=== PATIENT | female | born 1970 | race Caucasian/White ===

== ENCOUNTER 2016-12-10 11:21 | Emergency (ER) | payer MEDICAID ==
[2016-12-10 12:52] LABS: UA SPECIFIC GRAVITY <=1.005 (1.005-1.035); microscopic required? YES; urine erythrocyte 2+ (NEGATIVE)
[2016-12-10 12:56] VITALS: BP 130/65
== END 2016-12-10 12:57 | disposition home or self-care (01) ==
LOC: ED 11:21
PROVIDERS: Emergency Medicine
DX: N39.0 Urinary tract infection, site not specified (principal)

== ENCOUNTER 2017-04-01 11:31 | Emergency (ER) | payer MEDICAID ==
[~2017-04-01] VITALS: Ht 157.5 cm; Wt 67.1 kg
[2017-04-01 11:33] VITALS: BP 126/75
== END 2017-04-01 13:04 | disposition home or self-care (01) ==
LOC: ED 11:31
DX: R31.9 Hematuria, unspecified (principal); R35.0 Frequency of micturition; R30.9 Painful micturition, unspecified; I10 Essential (primary) hypertension

== ENCOUNTER 2018-03-23 16:00 | Emergency (ER) | payer MEDICAID ==
[~2018-03-23] VITALS: Ht 157.5 cm; Wt 68.0 kg
[2018-03-23 16:16] VITALS: Ht 157.5 cm; Wt 68.0 kg
[2018-03-23 20:19] VITALS: BP 142/92
== END 2018-03-23 20:19 | disposition home or self-care (01) ==
LOC: ED 16:00
DX: M79.671 Pain in right foot (principal); R30.0 Dysuria; I10 Essential (primary) hypertension
CPT/HCPCS: 90715